=== PATIENT | male | born 1995 | race Caucasian/White ===

== ENCOUNTER 2019-04-27 03:12 | Emergency (ER) | payer SELFPAY ==
[~2019-04-27] VITALS: Ht 175.3 cm; Wt 90.7 kg
[2019-04-27 04:58] LABS: ALKALINE PHOSPHATASE 52 U/L (46-116); ALT/SGPT 45 U/L (16-63); AST/SGOT 26 U/L (15-37); BILIRUBIN TOTAL 0.2 mg/dL (0.20-1.00); CARBON DIOXIDE 21.2 mmol/L (21-32); CHLORIDE SERUM 114 mmol/L (98-107); CREATININE SERUM 0.7 mg/dL (0.7-1.3); GFR1 > 60 mL/min; GLUCOSE SERUM 72 mg/dL (74-106); LIPASE 61 IU/L (73-393); SODIUM SERUM 145 mmol/L (136-145)
[2019-04-27 05:09] LABS: ALBUMIN 2.6 g/dL (3.4-5.0); POTASSIUM SERUM 2.1 mmol/L (3.5-5.1); TOTAL PROTEIN, SERUM 4.8 g/dL (6.4-8.2)
[2019-04-27 05:10] LABS: CALCIUM 5.4 mg/dL (8.5-10.1)
[2019-04-27 06:37] LABS: CALCIUM 8.2 mg/dL (8.5-10.1); CARBON DIOXIDE 22.6 mmol/L (21-32); CHLORIDE SERUM 107 mmol/L (98-107); CREATININE SERUM 0.8 mg/dL (0.7-1.3); GFR1 > 60 mL/min; GLUCOSE SERUM 110 mg/dL (74-106); SODIUM SERUM 140 mmol/L (136-145)
[2019-04-27 09:57] VITALS: BP 108/67
== END 2019-04-27 09:57 | disposition home or self-care (01) ==
LOC: ED 03:12
PROVIDERS: Emergency Medicine
DX: F10.129 Alcohol abuse with intoxication, unspecified (principal); R22.0 Localized swelling, mass and lump, head; Y90.9 Presence of alcohol in blood, level not specified
CPT/HCPCS: J2405; J7030